=== PATIENT | female | born 1970 | race Caucasian/White ===

== ENCOUNTER 2019-02-21 18:07 | Emergency (ER) | payer MEDICAID, OTHER ==
[~2019-02-21] VITALS: Wt 68.0 kg
[2019-02-21 18:12] VITALS: BP 163/78; PULSE 78; RESP 18
[2019-02-21] MEDS ORDERED: IBUP800T48 PO (21:44)
[2019-02-21] MEDS ORDERED: MUPI22OI2 TOP (21:44)
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
== END 2019-02-21 22:10 | disposition home or self-care (01) ==
LOC: FTE 18:07
DX: S00.81XA Abrasion of other part of head, initial encounter (principal); S29.9XXA Unspecified injury of thorax, initial encounter; I10 Essential (primary) hypertension; V49.50XA Passenger injured in collision with unspecified motor vehicles in traffic accident, initial encounter
CPT/HCPCS: 71045; Z7502